=== PATIENT | female | born 1955 | race Two or more races ===

== ENCOUNTER 2018-11-21 13:36 | Outpatient (CLI) | payer OTHER | END 2018-11-21 14:00 | disposition home or self-care (01) | LOC: NUCLEAR 13:36 | DX: I10 Essential (primary) hypertension (principal) ==

== ENCOUNTER 2018-11-30 09:26 | Outpatient (CLI) | payer OTHER | END 2018-11-30 09:42 | disposition home or self-care (01) | LOC: TOM 09:26 | DX: R51 Headache (principal); I10 Essential (primary) hypertension; R41.2 Retrograde amnesia ==

== ENCOUNTER 2024-07-02 12:51 | Outpatient (CLI) | payer OTHER | END 2024-07-02 12:57 | disposition home or self-care (01) | LOC: SONOGRAMA 12:51 | PROVIDERS: ATTEND Internal Medicine Rheumatology | DX: M75.81 Other shoulder lesions, right shoulder (principal); M75.82 Other shoulder lesions, left shoulder ==